=== PATIENT | male | born 1945 | race Hispanic/Latino ===

== ENCOUNTER 2017-03-03 23:44 | Emergency (ER) | payer MEDICARE ==
[2017-03-04 00:49] LABS: APPEARANCE,URINE Clear (CLEAR); BILIRUBIN,URINE Negative (NEGATIVE); COLOR,URINE Yellow (YELLOW); GLUCOSE, URINE (UA) Negative (NEGATIVE); KETONES,URINE Negative (NEGATIVE); LEUKOCYTE ESTERASE ,URINE Negative (NEGATIVE); NITRATE,URINE Negative (NEGATIVE); OCCULT BLOOD,URINE Negative (NEGATIVE); PROTEIN,URINE Negative (NEGATIVE); UROBILINOGEN,URINE 0.2 mg/dL (0.2-1.0)
[2017-03-04 00:56] LABS: EOSINOPHILS % (AUTO) 2.3 % (0.0-8.0); HEMATOCRIT 43.6 % (42-54); LYMPHOCYTES % (AUTO) 31.4 % (21.0-51.0); MEAN CORPUSCULAR HEMOGLOBIN 30.1 pg (27.0-33.0); MEAN CORPUSCULAR HGB CONC 34.5 g/dL (32.0-36.0); MEAN CORPUSCULAR VOLUME 87.2 fL (79-99); MONOCYTES % (AUTO) 14.4 % (3.0-13.0); NEUTROPHILS % (AUTO) 50.9 % (40.0-77.0); PLATELET COUNT (AUTO) 143 K/uL (130-400); WHITE BLOOD COUNT (AUTO) 5.2 K/uL (4.8-10.8)
[2017-03-04 01:13] LABS: CREATININE 1.2 mg/dL (0.5-1.5); POTASSIUM 4.6 mmol/L (3.5-5.1)
[2017-03-04 01:17] LABS: ALBUMIN 3.5 g/dL (3.5-5.0); BILIRUBIN,TOTAL 0.5 mg/dL (0.2-1.0); TOTAL PROTEIN, SERUM 7.3 g/dL (6.0-8.3)
[2017-03-04] MEDS ORDERED: HYOSCYAMINE SULFATE 0.125 MG TAB.SUBL SL ONE (01:22)
== END 2017-03-04 01:47 | disposition home or self-care (01) ==
LOC: EDH 23:44
DX: R10.84 Generalized abdominal pain (principal); E07.9 Disorder of thyroid, unspecified; I10 Essential (primary) hypertension; E78.5 Hyperlipidemia, unspecified; Z79.899 Other long term (current) drug therapy; Z87.891 Personal history of nicotine dependence
CPT/HCPCS: 36415; 74176; 80053; 81003; 82150; 83690; 85025

== ENCOUNTER → 2017-04-04 | Outpatient (CLI) | payer MEDICARE | END | disposition home or self-care (01) | LOC: RAH 04-03 10:07 | PROVIDERS: ATTEND Internal Medicine Gastroenterology | DX: K80.20 Calculus of gallbladder without cholecystitis without obstruction (principal); K76.0 Fatty (change of) liver, not elsewhere classified; I71.4 Abdominal aortic aneurysm, without rupture | CPT/HCPCS: 76700 ==

== ENCOUNTER → 2019-10-29 | Outpatient (CLI) | payer OTHER | END | disposition home or self-care (01) | LOC: OIH 13:19 | PROVIDERS: ATTEND Internal Medicine Cardiovascular Disease | DX: Z13.6 Encounter for screening for cardiovascular disorders (principal) | CPT/HCPCS: 75571 ==

== ENCOUNTER → 2019-11-24 | Outpatient (CLI) | payer MEDICARE | END | disposition home or self-care (01) | LOC: SHCH 10:58 | PROVIDERS: ATTEND Internal Medicine Cardiovascular Disease | DX: R55 Syncope and collapse (principal); I51.7 Cardiomegaly; R06.00 Dyspnea, unspecified; E78.5 Hyperlipidemia, unspecified | CPT/HCPCS: 93306; 93356 ==

== ENCOUNTER → 2022-01-08 | Outpatient (CLI) | payer OTHER ==
[2022-01-08 09:23] LABS: APPEARANCE,URINE CLEAR (CLEAR); BILIRUBIN,URINE NEGATIVE (NEGATIVE); COLOR,URINE LIGHT-YELLOW (YELLOW); GLUCOSE, URINE (UA) NEGATIVE (NEGATIVE); KETONES,URINE NEGATIVE (NEGATIVE); LEUKOCYTE ESTERASE ,URINE NEGATIVE Leu/uL (NEGATIVE); NITRATE,URINE NEGATIVE (NEGATIVE); OCCULT BLOOD,URINE NEGATIVE (NEGATIVE); PROTEIN,URINE NEGATIVE (NEGATIVE); UROBILINOGEN,URINE 0.2 mg/dL (0.2-1.0)
[2022-01-08 09:27] LABS: ALBUMIN 3.9 g/dL (3.5-5.0); CREATININE 1.2 mg/dL (0.5-1.5); POTASSIUM 4.3 mmol/L (3.5-5.1); TOTAL PROTEIN, SERUM 7.8 g/dL (6.0-8.3)
== END | disposition home or self-care (01) ==
LOC: LAB 08:14
PROVIDERS: ATTEND Chiropractor
DX: E11.9 Type 2 diabetes mellitus without complications (principal)
CPT/HCPCS: 36415; 80053; 81003

== ENCOUNTER → 2022-01-24 | Outpatient (CLI) | payer MEDICARE, OTHER | END | disposition home or self-care (01) | LOC: SHCH 07:46 | PROVIDERS: ATTEND Internal Medicine Cardiovascular Disease | DX: I77.811 Abdominal aortic ectasia (principal); I70.0 Atherosclerosis of aorta; I70.8 Atherosclerosis of other arteries | CPT/HCPCS: 93978 ==

== ENCOUNTER 2023-01-11 14:14 | Emergency (ER) | payer OTHER ==
[~2023-01-11] VITALS: Ht 172.7 cm; Wt 90.7 kg
[2023-01-11 14:32] VITALS: BP 142/92; PULSE 74; RESP 17
[2023-01-11] MEDS ORDERED: KETOROLAC 15MG/ML VIAL (15MG/ML) IM ONE (15:30)
== END 2023-01-11 16:12 | disposition home or self-care (01) ==
LOC: EDH 14:14
DX: M79.645 Pain in left finger(s) (principal); E11.9 Type 2 diabetes mellitus without complications; E78.00 Pure hypercholesterolemia, unspecified; I10 Essential (primary) hypertension; Z90.49 Acquired absence of other specified parts of digestive tract
CPT/HCPCS: 99283; 96372; J1885

== ENCOUNTER 2023-05-22 12:56 | Emergency (ER) | payer OTHER ==
[~2023-05-22] VITALS: Ht 172.7 cm; Wt 88.0 kg
[2023-05-22 13:56] LABS: BASOPHILS # (AUTO) 0.03 K/uL (0.00-0.20); BASOPHILS % (AUTO) 0.7 % (0.0-5.0); EOSINOPHILS % (AUTO) 2.2 % (0.0-8.0); HEMATOCRIT 45.7 % (42-54); IMMATURE GRANULOCYTE ABSOLUTE 0.01 K/uL (0-1); LYMPHOCYTES # (AUTO) 1.3 K/uL (1.0-4.8); MEAN CORPUSCULAR HEMOGLOBIN 29.2 pg (27.0-33.0); MEAN CORPUSCULAR HGB CONC 33.7 g/dL (32.0-36.0); MEAN CORPUSCULAR VOLUME 86.6 fL (79-99); MONOCYTES # (AUTO) 0.5 K/uL (0.1-1.0); NEUTROPHILS # (AUTO) 2.6 K/uL (1.8-7.7); NEUTROPHILS % (AUTO) 56.9 % (40.0-77.0); PLATELET COUNT (AUTO) 150 K/uL (130-400); RED BLOOD CELL COUNT(AUTO) 5.28 MIL/uL (4.50-6.20); RED CELL DISTRIBUTION WIDTH 14.8 % (11.0-15.5); WHITE BLOOD COUNT (AUTO) 4.5 K/uL (4.8-10.8)
[2023-05-22 14:03] LABS: CREATININE 1.1 mg/dL (0.5-1.3)
[2023-05-22] MEDS ORDERED: GADOTERATE MEGLUMINE 10 MMOL/20 ML VIAL IV ONE (18:31)
[2023-05-22] MEDS ORDERED: ASPI-1005 PO (19:49)
[2023-05-22 20:10] VITALS: BP 134/68; PULSE 48; RESP 17; O2SAT 98
== END 2023-05-22 20:11 | disposition home or self-care (01) ==
LOC: EDH 12:56
DX: H53.2 Diplopia (principal); E11.9 Type 2 diabetes mellitus without complications; E78.00 Pure hypercholesterolemia, unspecified; I10 Essential (primary) hypertension; Z90.49 Acquired absence of other specified parts of digestive tract; M79.662 Pain in left lower leg
CPT/HCPCS: 99285; 70553; 70450; 93971; 80048; 85025; 85378; 36415; 73562; A9575

== ENCOUNTER → 2023-08-31 | Outpatient (CLI) | payer OTHER | END | disposition home or self-care (01) | LOC: SHCH 08:00 | PROVIDERS: ATTEND Internal Medicine Cardiovascular Disease | DX: I07.1 Rheumatic tricuspid insufficiency (principal); I11.9 Hypertensive heart disease without heart failure | CPT/HCPCS: 93306 ==

== ENCOUNTER 2024-02-05 00:51 | Emergency (ER) | payer OTHER ==
[~2024-02-05] VITALS: Ht 172.7 cm; Wt 88.0 kg
[2024-02-05] MEDS: FAMOTIDINE 20MG VIAL IV STA (01:13)
[2024-02-05] MEDS: ondanSETRON 4MG INJ IVP STA (01:13)
[2024-02-05] MEDS: morPHINE 2 MG SYG IVP STA (01:13)
[2024-02-05 01:20] LABS: BASOPHILS # (AUTO) 0.02 K/uL (0.00-0.20); BASOPHILS % (AUTO) 0.2 % (0.0-5.0); EOSINOPHILS # (AUTO) 0.08 K/uL (0.00-0.70); EOSINOPHILS % (AUTO) 0.9 % (0.0-8.0); HEMATOCRIT 45.1 % (42-54); IMMATURE GRANULOCYTE ABSOLUTE 0.02 K/uL (0-1); LYMPHOCYTES # (AUTO) 0.9 K/uL (1.0-4.8); LYMPHOCYTES % (AUTO) 9.7 % (21.0-51.0); MEAN CORPUSCULAR HEMOGLOBIN 28.7 pg (27.0-33.0); MEAN CORPUSCULAR VOLUME 86.9 fL (79-99); MONOCYTES # (AUTO) 0.6 K/uL (0.1-1.0); MONOCYTES % (AUTO) 6.9 % (3.0-13.0); NEUTROPHILS # (AUTO) 7.2 K/uL (1.8-7.7); NEUTROPHILS % (AUTO) 82.1 % (40.0-77.0); PLATELET COUNT (AUTO) 142 K/uL (130-400); RED BLOOD CELL COUNT(AUTO) 5.19 MIL/uL (4.50-6.20); RED CELL DISTRIBUTION WIDTH 14.2 % (11.0-15.5); WHITE BLOOD COUNT (AUTO) 8.7 K/uL (4.8-10.8)
[2024-02-05 01:28] LABS: CREATININE 1.2 mg/dL (0.5-1.3); POTASSIUM 3.9 mmol/L (3.5-5.1)
[2024-02-05 01:34] LABS: ALBUMIN 3.9 g/dL (3.5-5.0); BILIRUBIN,DIRECT 0.1 mg/dL (0.0-0.3); BILIRUBIN,TOTAL 0.7 mg/dL (0.2-1.0); TOTAL PROTEIN, SERUM 6.9 g/dL (6.0-8.3)
[2024-02-05] MEDS: 0.9%NACL 1000ML 1,000 ML IV STA (02:18)
[2024-02-05] MEDS ORDERED: ONDA-243 PO (02:26)
[2024-02-05] MEDS ORDERED: FAMO-136 PO (02:26)
--- NOTE | 2024-02-05 02:28 | ERN ---
ED Note History of Present Illness Stated Complaint: C/O ABD PAIN WITH N X V X DIARRHEA Chief Complaint: Abdominal Pain Time Seen by MD: 00:56 Time Seen by Midlevel: 01:00 Dictation: 78-year-old male coming in complaining of generalized abdominal pain, nausea and vomiting diarrhea for the last 2 hours after eating water burger. Denies any chest pain, shortness of breath, or fevers. Allergies: Coded Allergies: No Known Drug Allergies (Unverified Allergy, Unknown, 01/11/23) Home Meds Active Scripts Famotidine (Pepcid) 20 Mg Tablet, 1 TAB PO BID for 14 Days, #60 TAB 0 Refills Prov:JORDAN MARTINEZ GLOVE WRAPPER 02/05/24 Ondansetron (Ondansetron Odt) 4 Mg Tab.rapdis, 4 MG PO Q6HPRN PRN for nausea, #16 TAB 0 Refills Prov:MARTINEZJORDAN DANIEL [employer]OVE WRAPPER 02/05/24 Past Medical History Past Medical History: Diabetes-Type II Surgical History: Unknown Social History: Negative Review of System Dictation Constitutional: Negative for fever,chills, and weight loss Eyes: Negative for injury, pain,redness, and discharge ENT: Negative for injury,pain or swelling Cardiovascular: Negative for chest pain, palpitations, and edema Respiratory: Negative for shortness of breath, cough, and wheezing, Abdomen/GI: Complaining of generalized abdominal pain, nausea, vomiting, diarrhea, Back: Negative for injury and pain : Negative for injury, bleeding and discharge MS/Extremity: Negative for injury and deformity Skin: Negative for rash, and discoloration Neuro: Negative for headache, weakness, numbness, tingling, and seizure Psych: Negative for suicide ideation, homicidal ideation, and hallucinations Review of Systems: was completed Initial Vital Sign VS Vital Signs Date Time Temp Pulse Resp B/P (MAP) Pulse Ox O2 Delivery O2 Flow Rate FiO2 02/05/24 00:53 97.5 74 20 140/74 95 Room Air Physical Exam Dictation General: awake, alert, NAD Head/Face: Normocephalic, atraumatic Eyes: PERRL, EOMI, vision at baseline ENT: oral cavity clear, TMs clear, no signs of infection Neck: Trachea midline, supple, no nuchal rigidity Cardiovascular: RRR, normal S1/S2, No MRGs, no JVD Respiratory: CTAB, no respiratory distress, No rales or wheezes Abdomen: Soft, non-tender, non-distended, normal bowel sounds, no guarding or rebound. Skin: Warm, dry, normal turgor, no rash MS/Extremity: Pulses equal, no cyanosis, neurovascular intact, FROM Neuro: COAx4, GCS 15, strength 5/5, CN 2-12 intact, normal cerebellar exam, normal gait, Psych: Normal behavior, mood, and affect normal Results (Laboratory/Radiology) Laboratory/Radiology Laboratory Tests Test 02/05/24 01:12 White Blood Count 8.7 K/uL (4.8-10.8) Red Blood Count 5.19 MIL/uL (4.50-6.20) Hemoglobin 14.9 g/dL (14.0-18.0) Hematocrit 45.1 % (42-54) Mean Corpuscular Volume 86.9 fL (79-99) Mean Corpuscular Hemoglobin 28.7 pg (27.0-33.0) Mean Corpuscular Hemoglobin Concent 33.0 g/dL (32.0-36.0) Red Cell Distribution Width 14.2 % (11.0-15.5) Platelet Count 142 K/uL (130-400) Mean Platelet Volume 10.5 fL (7.5-10.5) Immature Granulocyte % (Auto) 0.2 % (0-1) Neutrophils (%) (Auto) 82.1 % (40.0-77.0) H Lymphocytes (%) (Auto) 9.7 % (21.0-51.0) L Monocytes (%) (Auto) 6.9 % (3.0-13.0) Eosinophils (%) (Auto) 0.9 % (0.0-8.0) Basophils (%) (Auto) 0.2 % (0.0-5.0) Neutrophils # (Auto) 7.2 K/uL (1.8-7.7) Lymphocytes # (Auto) 0.9 K/uL (1.0-4.8) L Monocytes # (Auto) 0.6 K/uL (0.1-1.0) Eosinophils # (Auto) 0.08 K/uL (0.00-0.70) Basophils # (Auto) 0.02 K/uL (0.00-0.20) Absolute Immature Granulocyte (auto 0.02 K/uL (0-1) Nucleated Red Blood Cells 0.0 % (0.0-0.19) White Cell Morphology Comment See comments Sodium Level 140 mmol/L (136-145) Potassium Level 3.9 mmol/L (3.5-5.1) Chloride Level 105 mmol/L (101-111) Carbon Dioxide Level 28 mmol/L (21-32) Blood Urea Nitrogen 24 mg/dL (7-18) H Creatinine 1.2 mg/dL (0.5-1.3) Glomerular Filtration Rate Calc 62 mL/min (>90) Random Glucose 160 mg/dL (70-105) H Total Calcium 8.9 mg/dL (8.5-10.1) Total Bilirubin 0.7 mg/dL (0.2-1.0) Direct Bilirubin 0.1 mg/dL (0.0-0.3) Aspartate Amino Transf (AST/SGOT) 32 U/L (10-37) Alanine Aminotransferase (ALT/SGPT) 55 U/L (12-78) Alkaline Phosphatase 69 U/L (50-136) Total Protein 6.9 g/dL (6.0-8.3) Albumin 3.9 g/dL (3.5-5.0) Lipase 21 U/L (16-77) Labs Reviewed?: Yes EKG Comment: Date:02/05/24 Time:0114 Ventricular rate:76 HI interval:202 QRS duration:4 QT/QTc:413/464 EKG interpretation: Sinus rhythm Reviewed by ED Attending no STEMI interpreted by ER MD ED Course ED Course Orders Procedure Category Date Status Time Vital Signs Per CPOE 02/05/24 Transmitted Routine 00:59 Saline Lock Iv CPOE 02/05/24 Transmitted 00:59 Cbc With Differential LAB 02/05/24 Complete 00:59 Lipase LAB 02/05/24 Complete 00:59 Urinalysis Profile LAB 02/05/24 Logged 00:59 Basic Metabolic Panel LAB 02/05/24 Complete 00:59 Hepatic Function Panel LAB 02/05/24 Complete 01:00 Ondansetron 4mg Inj PHA 02/05/24 Complete (Zofran 4mg Inj) 01:00 Famotidine 20mg Vial PHA 02/05/24 Complete (Pepcid 20mg Vial) 01:00 Morphine 2mg Syg PHA 02/05/24 Complete (Morphine 2mg Syg) 01:00 12 Lead Ekg Tracing- EKG 02/05/24 Logged Technical 01:00 0.9%Nacl 1000ml (Ns PHA 02/05/24 In Process 1000ml) 01:56 Current Medications Medications (Trade) Dose Ordered Sig/Kyara Route PRN Reason Start Time Stop Time Status Last Admin Dose Admin Famotidine (Pepcid 20mg Vial) 20 mg ONCE STAT IV 02/05/24 01:00 02/05/24 01:02 DC 02/05/24 01:13 Morphine Sulfate (morPHINE 2MG SYG) 2 mg ONCE STAT IVP 02/05/24 01:00 02/05/24 01:02 DC 02/05/24 01:13 Ondansetron HCl (zoFRAN 4MG INJ) 4 mg ONCE STAT IVP 02/05/24 01:00 02/05/24 01:02 DC 02/05/24 01:13 Sodium Chloride 1,000 ml @ 1,000 mls/hr Q1H STAT IV 02/05/24 01:56 02/05/24 02:55 02/05/24 02:18 Vital Signs Date Time Temp Pulse Resp B/P (MAP) Pulse Ox O2 Delivery O2 Flow Rate FiO2 02/05/24 00:53 97.5 74 20 140/74 95 Room Air Medical Decision Making MDM MDM: 78-year-old male coming in complaining of generalized abdominal pain, nausea and vomiting diarrhea for the last 2 hours after eating water burger. Denies any chest pain, shortness of breath, or fevers.CBC shows no leukocytosis, no anemia, no thrombocytopenia. Chemistry shows no electrolyte abnormality. Normal kidney function. No transaminitis, T bili and lipase within normal range. Discussed findings with the patient. Discussed patient's he more than likely has food poisoning from the water burger he ate earlier. We will prescribe patient medications for his nausea and vomiting antacids. Educated to follow up with his PCP in 1-2 days or to return to the emergency room if symptoms worsen. Patient verbalized understanding, answered all questions. Differential diagnosis: Gastroenteritis, cholecystitis, pancreatitis Rationale: Tests considered and ordered secondary to shared decision making include: Previous outside records reviewed: Old ER visits. Risk of complication and/or morbidity or mortality of patient management: None Medications-Per medication reconciliation Need for hospitalization: Patient does not meet criteria for hospitalization. Need for emergency major/minor surgery: No There are no social concerns with this patient. Prescription drug management Prescriptions will include symptomatic care Patient's prior external medical records from other ER visits were reviewed by me as indicated. Prior testing and results from previous visits were reviewed. Prior tests were taken into account with medical decision making and resource utilization, independent historian/historians were used to obtain complete medical history. I independently interpreted the test that were performed, results were reviewed by me and considered findings on radiology if ordered. Medical management and examination interpretation discussions were had by me with other qualified healthcare professionals as indicated for the patient's care. DX & DISP Disposition: Discharge Departure Impression: Primary Impression: Gastroenteritis Condition: Stable Scripts Famotidine (Pepcid) 20 Mg Tablet 1 TAB PO BID for 14 Days, #60 TAB 0 Refills Prov: JORDAN MARTINEZ [employer]OVE WR[employer]PER 02/05/24 Ondansetron (Ondansetron Odt) 4 Mg Tab.rapdis 4 MG PO Q6HPRN PRN for nausea, #16 TAB 0 Refills Prov: JORDAN MARTINEZ [employer]OVE WR[employer]PER 02/05/24 Additional Instructions: Drink plenty of fluids, avoid any sugary drinks. Avoid any greasy, spicy foods. Take medications as prescribed. Follow up with your primary doctor in 1-2 days. Return to the ER if symptoms worsen. Referrals: KETAN ELY (PCP) Time of Disposition: 02:26 I have reviewed the case, and I agree with, Diagnosis and Plan JORDAN MARTINEZ NP Feb 05, 2024 02:28
[2024-02-05 03:07] VITALS: BP 140/64; PULSE 71; RESP 18; TEMP 98; O2SAT 98
--- NOTE | 2024-02-05 09:28 | EKG ---
[facility] Test Date: 2024-02-05 Test Time: 01:14:32 Pat Name: ZAKI MARTINEZ Department: ED Room: Gender: M [employer]ing Worker: [id number] : 1945 Requested By: JORDAN MARTINEZ Order Number: [id number] Reading MD: Eliezer Cain Measurements Intervals [place] Rate: 76 P: 47 [place]: 202 QRS: 4 QRSD: 113 T: 7 QT: 413 QTc: 464 Interpretive Statements Sinus rhythm No previous ECG available for comparison Electronically Signed On 02-05-2024 17:04:19 GARAGE MANAGER by Eliezer Cain Please click the below link to view image of tracing.
== END 2024-02-05 03:35 | disposition home or self-care (01) ==
LOC: EDH 00:51
DX: K52.9 Noninfective gastroenteritis and colitis, unspecified (principal); E11.9 Type 2 diabetes mellitus without complications
CPT/HCPCS: 99284; 96374; 96375; 80076; 80048; 83690; 85025; 36415; 93005; J3490; J2270; J2405